=== PATIENT | male | born 1980 | race Two or more races ===

== ENCOUNTER 2020-10-14 20:27 | Emergency (ER) | payer SELFPAY ==
--- NOTE | 2020-10-14 22:35 | ER Document Report ---
ED Medical Screen (RME) - General Chief Complaint: Swallowed Foreign Body Stated Complaint: POSSIBLE GLASS STUCK IN THROAT Time Seen by Provider: 10/14/20 22:19 - HPI Notes: Patient is a 40-year-old male with no medical history who presents with difficulty swallowing and foreign body sensation in his throat for the past 3 days. He states he swallowed glass a year ago which passed without issue. However, for the past 3 days he has had a similar sensation. He states he is able to tolerate his saliva and swallow fluids and banana but cannot swallow anything solid. He reports pain with swallowing as well as abdominal pain. He denies nausea, vomiting, and chest pain. - Related Data Allergies/Adverse Reactions: No Known Allergies Allergy (Unverified 10/14/20 22:22) Past Medical History - Social History Frequency of alcohol use: None Drug Abuse: None Physical Exam - Vital signs Vitals: Temp Pulse Resp BP 98.5 F 77 16 140/88 H 10/14/20 20:41 10/14/20 20:41 10/14/20 20:41 10/14/20 20:41 - HEENT Pharynx: Normal. No: Erythema, Exudate, Tonsillar hypertrophy, Potential airway comprom. - Abdominal Inspection: Normal Bowel sounds: Normal Tenderness: Nontender Course - Re-evaluation Re-evalutation: I have greeted and performed a rapid initial assessment of this patient. A comprehensive ED assessment and evaluation of the patient, analysis of test results and completion of medical decision making process will be conducted by an additional ED providers. - Vital Signs Vital signs: Temp Pulse Resp BP Pulse Ox 98.5 F 77 16 140/88 H 10/14/20 20:41 10/14/20 20:41 10/14/20 20:41 10/14/20 20:41
[2020-10-14 23:10] LABS: ABSOLUTE BASOPHILS # (AUTO) 0.1 10^3/uL (0.0-0.2); ABSOLUTE EOSINOPHILS # (AUTO) 0.2 10^3/uL (0.0-0.6); ABSOLUTE MONOCYTES (AUTO) 0.9 10^3/uL (0.1-1.4); ABSOLUTE NEUT (AUTO) 3.3 10^3/uL (1.7-8.2); BASOPHILS % (AUTO) 0.7 % (0-2); EOSINOPHILS % (AUTO) 2.5 % (0-6); HEMATOCRIT 43.8 % (37.9-51.0); HEMOGLOBIN 15.1 g/dL (13.5-17.0); MEAN CORPUSCULAR HGB CONC 34.6 g/dL (32.0-36.0); MEAN CORPUSCULAR VOLUME 90 fl (80-97); MONOCYTES % (AUTO) 12.6 % (3-13); PLATELET COUNT 203 10^3/uL (150-450); RED BLOOD COUNT 4.89 10^6/uL (4.35-5.55); RED CELL DISTRIBUTION WIDTH 13.2 % (11.5-14.0); SEGMENTED NEUTROPHILS % (AUTO) 44.2 % (42-78); TOTAL CELLS COUNTED % (AUTO) 100 %; WHITE BLOOD COUNT 7.5 10^3/uL (4.0-10.5)
[2020-10-14 23:19] LABS: ALBUMIN 4.7 g/dL (3.5-5.0); ALKALINE PHOSPHATASE 92 U/L (38-126); ANION GAP 12 (5-19); ASPARTATE AMINO TRANSFERASE 52 U/L (17-59); BLOOD UREA NITROGEN 14 mg/dL (7-20); CALCIUM 10.1 mg/dL (8.4-10.2); CARBON DIOXIDE 29 mmol/L (22-30); CHLORIDE 101 mmol/L (98-107); GLUCOSE 99 mg/dL (75-110); POTASSIUM 4.2 mmol/L (3.6-5.0); TOTAL PROTEIN 8.3 g/dL (6.3-8.2)
[2020-10-15 02:25] LABS: APPEARANCE,URINE SLIGHTLY-CLOUDY; BILIRUBIN,URINE NEGATIVE (NEGATIVE); COLOR,URINE YELLOW; GLUCOSE, URINE NEGATIVE (NEGATIVE); KETONES,URINE NEGATIVE (NEGATIVE); LEUKOCYTE ESTERASE,URINE NEGATIVE (NEGATIVE); NITRITE,URINE NEGATIVE (NEGATIVE); PROTEIN,URINE 100 mg/dL (NEGATIVE); URINE SPECIFIC GRAVITY 1.029; UROBILINOGEN,URINE NEGATIVE mg/dL (<2.0)
--- NOTE | 2020-10-15 03:49 | RADIOLOGY REPORT (SQ) ---
CT neck with contrast on 10/15/2020 at 3:06 AM CLINICAL INDICATION: Difficulty swallowing, foreign body sensation in throat TECHNIQUE: Multiple axial images are obtained throughout the neck following the administration of IV contrast, 75 ml of Omnipaque 350contrast was administered intravenously without complication. This exam was performed according to our departmental dose-optimization program, which includes automated exposure control, adjustment of the mA and/or kV according to patient size and/or use of iterative reconstruction technique. Total DLP is 612.02 mGy*cm. COMPARISON: None FINDINGS: The upper lungs are clear. There is no adenopathy in the neck by CT size criteria. The epiglottis and airway is unremarkable. No mucosal lesion is noted. There is no prevertebral soft tissue swelling. There is no radiopaque foreign body. No mucosal lesion is noted. Multiple dental caries are noted. Visualized paranasal sinuses are clear. Mastoid air cells are clear. No bony abnormality is noted. IMPRESSION: No acute abnormality.
--- NOTE | 2020-10-15 04:47 | ER Document Report ---
ED General - General Chief Complaint: Swallowed Foreign Body Stated Complaint: POSSIBLE GLASS STUCK IN THROAT Time Seen by Provider: 10/14/20 22:19 Mode of Arrival: Ambulatory Information source: Patient Notes: Patient is a 40-year-old male coming in today with painful swallowing. Has been going on a couple of days. Patient reports while ago that he had accidentally swallowed a piece of glass from a [employer] bottle. Apparently he did not have any problems and did not have to see any specialist for it. States that it ran through his system and came out. Today feeling a similar sensation in the base of his throat on the right side. He is able to tolerate patients. He reports some low-grade fevers and also soreness in the back of his throat. - Related Data Allergies/Adverse Reactions: No Known Allergies Allergy (Unverified 10/14/20 22:22) Past Medical History - Social History Smoking Status: Never Smoker Frequency of alcohol use: None Drug Abuse: None Family History: None Patient has homicidal ideation: No Review of Systems - Review of Systems Notes: Constitutional: + FEVERS EENT: No eye redness. No eye pain. No ear pain. +sore throat. Positive for painful swallowing Cardiovascular: No chest pain. No palpitations. Respiratory: No cough. No shortness of breath. No respiratory distress. Gastrointestinal: No abdominal pain. No nausea, vomiting, or diarrhea. Genitourinary: Atraumatic. No lesions. No pain. No discharge. Musculoskeletal: Atraumatic. No swelling. No deformities. Skin: No rash or lesions. Lymphatic: No swollen lymph nodes. Neurologic: No headache. No syncope. Psychiatric: No suicidal or homicidal ideation. Physical Exam - Vital signs Vitals: Temp Pulse Resp BP 98.5 F 77 16 140/88 H 10/14/20 20:41 10/14/20 20:41 10/14/20 20:41 10/14/20 20:41 - Notes Notes: General: Well-developed, well-nourished. In no acute distress. Non-toxic appearing. Cardiac: Well-perfused. Regular rate and rhythm. No murmurs, rubs, or gallops. Pulmonary: No respiratory distress. No cyanosis. Bilateral lung Matta are clear to auscultation. Abdominal: Non-distended. Non-rigid. Bowels sounds are present in all four quadrants. No guarding or rebound. HEENT: Head is atraumatic. Conjunctivae not reddened. No tearing. PERRL. EOMI. Orbits atraumatic. No periorbital swelling or erythema. Plus injected posterior oropharynx without enlarged tonsils or exudates. Neck: Supple. No adenopathy. No meningismus. Dermatologic: Warm with good turgor. No rash. Atraumatic. Chest: Atraumatic. No chest wall tenderness to palpation. Musculoskeletal: Moves all extremities well. No range of motion deficits. no muscular or joint tenderness. No paraspinal muscle tenderness. no midline spinal tenderness or step-off. Genitourinary: Examination deferred Neurologic: No gross neurologic deficits. Psychiatric: Normal mood. Course - Re-evaluation Re-evalutation: 10/15/20 04:43 Lab work looks good. Exam shows a mild pharyngitis. CT scan of this neck is negative for any swelling. - Vital Signs Vital signs: Temp Pulse Resp BP Pulse Ox 97.7 F 63 16 130/83 H 98 10/15/20 01:36 10/15/20 01:36 10/15/20 01:36 10/15/20 01:36 10/15/20 01:36 - Laboratory Result Diagrams: 10/14/20 22:52 10/14/20 22:52 Laboratory results interpreted by me: 10/14/20 10/15/20 22:52 02:00 ALT 91 H Total Protein 8.3 H Urine Protein 100 H Urine Ascorbic Acid 40 H Discharge - Discharge Clinical Impression: Odynophagia, Esophagitis Pharyngitis Qualifiers: Pharyngitis/tonsillitis etiology: unspecified etiology Qualified Code(s): J02.9 - Acute pharyngitis, unspecified Condition: Good Disposition: HOME, SELF-CARE Instructions: Antacid Therapy ([facility]), Esophagitis ([facility]), Sucralfate ([facility]), Sore Throat ([facility]) Prescriptions: Amoxicillin 875 mg PO BID 7 Days #14 tablet Sucralfate [Carafate 1 gm Tablet] 1 gm PO QID 7 Days #28 tablet Famotidine [Pepcid 20 mg Tablet] 20 mg PO BID 7 Days #14 tablet Print Language: Icelandic
[2020-10-15 05:17] VITALS: BP 138/78
== END 2020-10-15 05:08 | disposition home or self-care (01) ==
LOC: ER 20:27
DX: J02.9 Acute pharyngitis, unspecified (principal); K20.90 Esophagitis, unspecified without bleeding; R13.10 Dysphagia, unspecified; R50.9 Fever, unspecified
CPT/HCPCS: 36415; 70491; 80053; 81001; 83690; 85025; 99284